=== PATIENT | female | born 1990 | race Hispanic/Latino ===

== ENCOUNTER 2018-01-03 15:36 | Inpatient (IN) | payer MEDICAID ==
--- NOTE | 2018-01-03 16:14 | C.PDOC ---
History Of Present Illness 27 y/o female with a history of benzo addiction presents to the ED for an intentional overdose via opiate. Patient attempted suicide this morning claiming to still have suicidal ideation. She is complaining of anxiety and claims to have last used yesterday. Denies other symptoms. PMD: none provided S/P INTENTIONAL OD THIS MORNING CO SUICIDAL IDEATION. +OPIATE OD. +BZ ABUSE. CURRENTLY CO ANXIETY, LAST USE YESTERDAY. DENIES OTHER SX EXAM MILD DIST PSYCH CALM COOPERATIVE NO ACUTE INTOX/WITHDRAWAL +SI REMAINDER NEG Time Seen by Provider: 01/03/18 16:00 Chief Complaint (Nursing): Psychiatric Evaluation History Per: Patient History/Exam Limitations: no limitations Onset/Duration Of Symptoms: Hrs Current Symptoms Are (Timing): Still Present Modifying Factor(s): Narcotics, Other (benzo drugs) Associated Symptoms: Anxiety, Suicidal Thoughts, Suicidal Plan Recent travel outside of the [place]: No Past Medical History Vital Signs: Last Vital Signs Temp 98.1 F 01/03/18 18:08 Pulse 82 01/03/18 18:08 Resp 18 01/03/18 18:08 BP 98/63 L 01/03/18 18:08 Pulse Ox 96 01/03/18 18:35 - Medical History PMH: Anxiety, Asthma, Bipolar Disorder, Depression, Post Traumatic Stress Disorder Surgical History: No Surg Hx Family History: States: No Known Family Hx - Social History Hx Tobacco Use: No Hx Alcohol Use: No Hx Substance Use: Yes - Immunization History Hx Tetanus Toxoid Vaccination: No Hx Influenza Vaccination: No Hx Pneumococcal Vaccination: No Review Of Systems Except As Marked, All Systems Reviewed And Found Negative. Constitutional: Positive for: Other (opiate overdose) Psych: Positive for: Anxiety, Suicidal ideation Physical Exam - Physical Exam Appears: No Acute Distress (no acute intoxication/withdrawal), In Acute Distress Skin: Normal Color, Warm, Dry Head: Atraumatic, Normacephalic Eye(s): bilateral: Normal Inspection, PERRL, EOMI Nose: Normal Throat: Normal Neck: Normal Cardiovascular: Rhythm Regular, No Murmur Respiratory: Normal Breath Sounds, No Decreased Breath Sounds Gastrointestinal/Abdominal: Normal Exam, Soft, No Tenderness Back: Normal Inspection, No CVA Tenderness, No Vertebral Tenderness Extremity: Normal ROM, No Pedal Edema, No Deformity Neurological/Psych: Oriented x3, Other (calm and cooperative +DEPRESSION, ACTIVE SI. NO ACUTE INTOX/WITHDRAWAL) ED Course And Treatment - Laboratory Results Result Diagrams: 01/03/18 16:17 01/03/18 16:17 ECG: Interpreted By Me ECG Rhythm: Sinus Rhythm Rate From EC O2 Sat by Pulse Oximetry: 96 (RA) Pulse Ox Interpretation: Normal - Radiology CXR: Interpreted by Me CXR Interpretation: Yes: No Acute Disease Reevaluation Time: 18:20 Reassessment Condition: Improved (MED CLEAR FOR PSYCH EVAL. CRISIS RENETTA NOTIFIED) Medical Decision Making Medical Decision Making: Scribe Attestation: Documented by Heidy Araya acting as a scribe Addie Carmichael MD. Scribe Attestation: All medical record entries made by the Scribe were at my direction and personally dictated by me. I have reviewed the chart and agree that the record accurately reflects my personal performance of the history, physical exam, medical decision making, and the department course for this patient. I have also personally directed, reviewed, and agree with the discharge instructions and disposition. Disposition Counseled Patient/Family Regarding: Studies Performed, Diagnosis - Disposition Disposition: HOSPITALIZED Disposition Time: 18:34 Condition: STABLE Forms: [facility] (Indian) - POA Present On Arrival: None - Clinical Impression Clinical Impression: PTSD (post-traumatic stress disorder), Opiate abuse, continuous Decision To Admit - Pt Status Changed To: Hospital Disposition Of: Inpatient - Admit Certification Admit to Inpatient:: After my assessment, the patient will require hospitalization for at least two midnights. This is because of the severity of symptoms shown, intensity of services needed, and/or the medical risk in this patient being treated as an outpatient. - InPatient: Physician Admission Certification: I certify that this patient requires 2 or more midnights of care for the following reason:: SEE NOTE - . Bed Request Type: Psychiatry Admitting Physician: Buzz Montes Patient Diagnosis: PTSD (post-traumatic stress disorder), Opiate abuse, continuous
[2018-01-03 16:25] LABS: BASO % 0.2 % (0.0-2.0); EOS # 0.1 K/uL (0.0-0.7); HEMOGLOBIN 13.6 g/dL (11.0-16.0); LYMPH # 1.2 K/uL (1.0-4.3); LYMPH % 10.1 % (20.0-40.0); MEAN CELL VOLUME 88.8 fL (81.0-99.0); MEAN CORPUSCULAR HEMOGLOBIN 30.8 pg (27.0-31.0); MEAN CORPUSCULAR HGB CONC 34.7 g/dL (33.0-37.0); MEAN PLATELET VOLUME 10.1 fL (7.2-11.7); MONO # 0.7 K/uL (0.0-0.8); MONO % 6.1 % (0.0-10.0); NEUT # 9.6 K/uL (1.8-7.0); NEUT % 82.6 % (50.0-75.0); NRBC % 0.1 % (0.0-2.0); RBC 4.41 Mil/uL (3.80-5.20); RED CELL DISTRIBUTION WIDTH 14.3 % (11.5-14.5); WHITE BLOOD COUNT 11.6 K/uL (4.8-10.8)
[2018-01-03 16:31] LABS: ACETAMINOPHEN < 10.0 ug/mL (10.0-30.0); SALICYLATE < 1.0 mg/dL 1
[2018-01-03 16:32] LABS: ALB/GLOB RATIO 1.1 (1.0-2.1); ALBUMIN 4.7 g/dL (3.5-5.0); CALCIUM 9.6 mg/dl (8.6-10.4); GFR AFRICAN-AMERICAN > 60; GFR NON-AFRICAN AMERICAN > 60
[2018-01-03 16:38] LABS: ALT/SGPT 22 U/L (9-52); AST/SGOT 29 U/L (14-36); BLOOD UREA NITROGEN 18 mg/dL (7-17)
--- NOTE | 2018-01-03 17:25 | RAD ---
PROCEDURE: CHEST RADIOGRAPH, 1 VIEW HISTORY: Overdosed COMPARISON: No prior study available comparison. FINDINGS: LUNGS: Clear. PLEURA: No pneumothorax or pleural fluid seen. CARDIOVASCULAR: Normal. OSSEOUS STRUCTURES: No significant abnormalities. VISUALIZED UPPER ABDOMEN: Normal. OTHER FINDINGS: In situ left nipple ring. IMPRESSION: No active disease.
[2018-01-03 17:50] LABS: SQUAMOUS EPITHIAL 4 /hpf (0-5); URINE BACTERIA OCC (<OCC); URINE BILIRUBIN NEGATIVE (NEGATIVE); URINE BLOOD NEGATIVE (NEGATIVE); URINE CALCIUM OXALATE CRYSTALS OCC /hpf (<OCC); URINE CLARITY Hazy (Clear); URINE COLOR Yellow (YELLOW); URINE GLUCOSE (UA) NORMAL (Normal); URINE HYALINE CAST >20 /lpf (0-2); URINE LEUKOCYTE ESTERASE TRACE Leu/uL (Negative); URINE PROTEIN 2+ mg/dL (NEGATIVE); URINE UROBILINOGEN NORMAL mg/dL (0.2-1.0)
[2018-01-03 17:57] LABS: BENZODIAZEPINES, UR NEGATIVE (NEGATIVE); PHENCYCLIDINE, UR NEGATIVE (NEGATIVE)
[2018-01-03 18:13] LABS: BARBITURATES, UR POSITIVE (NEGATIVE); OPIATES, UR POSITIVE (NEGATIVE)
--- NOTE | 2018-01-03 19:23 | PCM.BM ---
<Shaquille Augustine - Last Filed: 01/03/18 19:21> Treatment Plan Problems - Problems identified on initial assessmt Suicidal Ideation Date Initiated: 01/03/18 Time Initiated: 19:15 Assessment reference: NA Status: Monitor Opiates Abuse Date Initiated: 01/03/18 Time Initiated: 19:15 Assessment reference: NA Status: Active Treatment assets and liabiliti Patient Assests: good support system, negotiates basic needs Patient Liabilities: physical pain, substance abuse (Opiates, Barbituates), medical problems - Milieu Protocol Maintain good personal hygiene: daily Encourage regular showers, daily Remind patient to perform daily oral care, every shift Assist patient to perform ADL's Conduct patient checks and document Observation sheet: Q15 minutes Maintain personal safety: every shift Educate patient to report safety concerns to staff, every shift Monitor environment for contraband/sharps Medication safety: Monitor for expected outcome, potential side effects: every shift, Assess barriers to learning: every shift, Assess readiness for medication education: every shift <Deidra Warren - Last Filed: 01/05/18 11:29> - Diagnosis (1) Bipolar disorder Status: Acute Interventions: 01/05/18 11:29 * Assess/adjust medications daily and /or as needed * See patient on an individual basis 7x/week to assess level of manic behaviors and stability * Discuss risks, benefits, side effects and alternatives of medications * (2) Opiate abuse, continuous Status: Acute Interventions: \ * Assess 7x/week regarding severity of withdrawal * Educate regarding risks, benefits, side effects and alternatives of medications * Use Motivational Interviewing for abstinence * Use CBT for relapse prevention * Medication management for withdrawal symptoms * Encourage medication assisted treatment *
[2018-01-03] MEDS ORDERED: Albuterol HFA 90 mcg/actuation (8 g) INH PRN (19:57)
[2018-01-03] MEDS ORDERED: (Novolin R) Insulin Human Regular 100 units/ml vial SC SCH (20:03)
[2018-01-03] MEDS ORDERED: Aluminum Hydroxide/Magnesium Hydroxide Susp (30 mL) PO PRN (20:17)
[2018-01-03] MEDS: (Novolin R) Insulin Human Regular 100 units/ml vial SC SCH (21:01)
[2018-01-04] MEDS: (Novolin R) Insulin Human Regular 100 units/ml vial SC SCH ×4 (07:43→22:50)
[2018-01-04] MEDS: Multiple Vitamins Tab PO SCH (09:47)
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
--- NOTE | 2018-01-04 22:15 | CARD ---
APPROVED REPORT EKG Measurement Heart [id number] <Conclusion> Normal sinus rhythm Normal ECG
[2018-01-04] MEDS ORDERED: Albuterol HFA 90 mcg/actuation (8 g) IH SCH (23:45)
[2018-01-05 06:45] VITALS: TEMP 97.6
[2018-01-05] MEDS: (Novolin R) Insulin Human Regular 100 units/ml vial SC SCH ×4 (08:01→21:42)
[2018-01-05] MEDS: Multiple Vitamins Tab PO SCH (09:34)
--- NOTE | 2018-01-05 10:35 | PCM.PYCHPN ---
Psychiatric Progress Note - Psychiatric Progress Note Patient seen today, length of contact: 15 min Patient Chief Complaint: I am feeling much better.' Problems Identified/Issues Discussed: Patient seen and evaluated, chart reviewed and discussed with the nurse. Patient reports some improvement in her mood and reports improvement in the anxiety symptoms. Patient reports withdrawal symptoms including nausea, headaches, cramps and sweating. She denies any auditory or visual hallucinations. She still appears depressed, isolated and withdrawn. However, she remained calm and cooperative. Pt signed a 48 hrs notice. Pt will be screened by [facility]. Patient is compliant with medications and denies any side effects. Symptoms are improving but need more time to stabilize. Support and psychoeducation given. Medication Change: Yes (Methadone taper) Medical Record Reviewed: Yes Mental Status Examination - Cognitive Function Orientation: Person, Place, Situation, Time Memory: Intact Attention: WNL Concentration: Poor Association: WNL Fund of Knowledge: Poor - Mood Mood: Depressed, Anxious - Affect Affect: Constricted, Depressed - Speech Speech: Soft - Formal Thought Process Formal Thought Process: Flight of ideas - Suicidal Ideation Suicidal Ideation: No - Homicidal Ideation Homicidal Ideation: No Goal/Treatment Plan - Goal/Treatment Plan Need for Continued Stay: Severe depression anxiety, Severe functional impairment Progress Toward Problem(s) and Goals/Treatment Plan: Bipolar disorder mixed severe with psychotic features -CBT -Psychoeducation -Supportive therapy, group therapy, individual therapy -Minipress 2 mg PO QHS -Neurontin 300 mg by mouth 3 times a day -Remeron 30 mg PO QHS -Seroquel 200 mg by mouth daily at bedtime Opioid use disorder severe -CBT -Psychoeducation -Supportive therapy, individual therapy -Use FL for abstinence Opioid withdrawal -CBT -Psychoeducation -Supportive therapy, individual therapy -Clonidine when necessary -Start methadone taper -Start prn meds Sedative/Hypnotic use disorder severe -CBT -Psychoeducation -Supportive therapy, individual therapy -Use FL for abstinence Sedative/Hypnotic withdrawal -CBT -Psychoeducation -Supportive therapy, individual therapy -D/C Librium taper -Start Ativan taper -Ativan PRN Cannabis use disorder moderate -Monitor signs and symptoms -Use FL for abstinence DM Continue prescribed meds Asthma Continue prescribed meds - Smoking Cessation Smoking Cessation Initiated: No
[2018-01-05] MEDS ORDERED: Prazosin HCL 5 mg PO SCH (22:00)
[2018-01-05] MEDS ORDERED: QUEtiapine 150 mg XR Tab PO SCH (22:00)
[2018-01-06 06:27] VITALS: BP 113/74; PULSE 89; RESP 20; O2SAT 97
[2018-01-06] MEDS: (Novolin R) Insulin Human Regular 100 units/ml vial SC SCH (08:04)
--- NOTE | 2018-01-06 09:11 | PCM.PYCHDC ---
Mental Status Examination - Mental Status Examination Orientation: Person Discharge Summary - Discharge Note Laboratory Data: Abnormal Lab Results 01/05/18 01/05/18 01/05/18 11:02 16:21 21:04 POC Glucose (mg/dL) 181 H 79 228 H 01/06/18 07:45 POC Glucose (mg/dL) 162 H Consultations:: List each consultation separately and include: 1. Reason for request. 2. Findings. 3. Follow-up Summary of Hospital Course include:: 1. Description of specific treatment plan utilized for patients during their course of treatmen. 2. Summarize the time- course for resolution of acute symptoms and/or regressed behaviors. 3. Describe issues identified and worked on during hospitalization. 4. Describe medication utilized. 5. Describe medical problems identified and treated. 6. Reassessment of suicide risk - Final Diagnosis (DSM 5) Condition upon Discharge: STABLE Disposition: AGAINST MEDICAL ADVICE Prescriptions/Medication Reconciliation: Gabapentin [Neurontin] 300 mg PO BID #60 cap Mirtazapine [Remeron] 30 mg PO HS #30 tab Prazosin HCl [Minipress] 5 mg PO HS #30 capsule QUEtiapine [SEROquel] 200 mg PO HS #30 tab
[2018-01-06] MEDS: Multiple Vitamins Tab PO SCH (09:16)
== END 2018-01-06 10:10 | disposition left against medical advice (07) | DRG 430 ==
LOC: C.ER 15:36 → C.5E 18:35
PROC: GZ3ZZZZ Medication Management (ICD-10-PCS; principal; 2018-01-03)
PROC: GZHZZZZ Group Psychotherapy (ICD-10-PCS; 2018-01-03)
PROC: GZ56ZZZ Individual Psychotherapy, Supportive (ICD-10-PCS; 2018-01-03)
PROC: HZ2ZZZZ Detoxification Services for Substance Abuse Treatment (ICD-10-PCS; 2018-01-03)
PROC: HZ59ZZZ Individual Psychotherapy for Substance Abuse Treatment, Supportive (ICD-10-PCS; 2018-01-03)
PROC: HZ46ZZZ Group Counseling for Substance Abuse Treatment, Psychoeducation (ICD-10-PCS; 2018-01-03)
DX: F31.64 Bipolar disorder, current episode mixed, severe, with psychotic features (principal); F11.23 Opioid dependence with withdrawal; F13.239 Sedative, hypnotic or anxiolytic dependence with withdrawal, unspecified; F43.10 Post-traumatic stress disorder, unspecified; F12.20 Cannabis dependence, uncomplicated; G47.419 Narcolepsy without cataplexy; F17.210 Nicotine dependence, cigarettes, uncomplicated; E11.9 Type 2 diabetes mellitus without complications; J45.909 Unspecified asthma, uncomplicated; Z91.5 Personal history of self-harm

== ENCOUNTER 2018-09-19 23:55 | Emergency (ER) | payer MEDICAID, OTHER ==
[2018-09-20 00:11] VITALS: BP 135/86; PULSE 107; RESP 20; TEMP 98; O2SAT 100
--- NOTE | 2018-09-20 01:17 | C.PDOC ---
History Of Present Illness 27 y/o female presents for detox from heroin and other substances; pt sts she left a detox program today and still feels like she is detoxing after 4-5 days there and wants to continue. denies using drugs today. c/o diarrhea. pt made aware there are no female detox beds available. became verbally abusive to me and staff, cursing. pt walked out of ed, was not physically examined. Time Seen by Provider: 09/20/18 00:13 Chief Complaint (Nursing): Substance Abuse History Per: Patient History/Exam Limitations: no limitations Onset/Duration Of Symptoms: Hrs Associated Symptoms: Anger, Anxiety, Agitation Past Medical History Reviewed: Historical Data, Nursing Documentation, Vital Signs Vital Signs: Last Vital Signs Temp 98 F 09/20/18 00:06 Pulse 107 H 09/20/18 00:06 Resp 20 09/20/18 00:06 BP 135/86 09/20/18 00:06 Pulse Ox 100 09/20/18 00:06 - Medical History PMH: Anxiety, Asthma, Bipolar Disorder, Depression, Diabetes, Post Traumatic Stress Disorder, Seizures Denies: Hepatitis, HIV, HTN, Sexually Transmitted Disease Surgical History: No Surg Hx - [facility] DETOXIFICATION SERVICES FOR SUBSTANCE ABUSE TREATMENT (01/03/18) GROUP SHELTER SUPERVISOR FOR SUBSTANCE ABUSE TREATMENT, PSYCHOEDUCATION (01/03/18) GROUP PSYCHOTHERAPY (01/03/18) INDIV PSYCHOTHERAPY FOR SUBSTANCE ABUSE TREATMENT, SUPPORT (01/03/18) INDIVIDUAL PSYCHOTHERAPY, SUPPORTIVE (01/03/18) MEDICATION MANAGEMENT (01/03/18) Family History: States: Unknown Family Hx - Social History Hx Tobacco Use: No Hx Alcohol Use: No Hx Substance Use: Yes - Immunization History Hx Tetanus Toxoid Vaccination: No Hx Influenza Vaccination: No Hx Pneumococcal Vaccination: No Review Of Systems Review Of Systems: ROS cannot be obtained secondary to pt's inabilty to answer questions. (pt not cooperative) Psych: Positive for: Other (detox ) Physical Exam - Physical Exam Appears: Non-toxic, Unkempt, Agitated Skin: Warm Head: Atraumatic, Normacephalic ED Course And Treatment O2 Sat by Pulse Oximetry: 100 Medical Decision Making Medical Decision Making: Progress: Patient informed that there are no detox bed available at this time. Patient became angry, verbally abusive and eloped from the ED prior to physical examination. Disposition - Disposition Disposition: ELOPEMENT - ER ONLY Disposition Time: 12:15 Condition: FAIR Forms: [facility] (Malaysian) - Clinical Impression Clinical Impression: Drug dependence
== END 2018-09-20 00:13 | disposition left against medical advice (07) ==
LOC: C.ER 23:55
DX: F19.20 Other psychoactive substance dependence, uncomplicated (principal)

== ENCOUNTER 2018-10-01 23:28 | Inpatient (IN) | payer MEDICAID, OTHER ==
--- NOTE | 2018-10-02 00:32 | C.PDOC ---
History Of Present Illness Patient presents to the ER stating she has had suicidal ideation for the past 3 days. Patient states she wants to OD but is also requesting detox from ETOH and heroin. Denies any physical complaints at this time. Time Seen by Provider: 10/02/18 00:31 Chief Complaint (Nursing): Psychiatric Evaluation History Per: Patient History/Exam Limitations: no limitations Onset/Duration Of Symptoms: Days Current Symptoms Are (Timing): Still Present Suicide/Self Injury Attempted (Context): None Modifying Factor(s): None Severity: None Pain Scale Rating Of: 0 Associated Symptoms: Suicidal Thoughts, Suicidal Plan Involuntary Hold By: None Recent travel outside of the [place]: No Past Medical History Reviewed: Historical Data, Nursing Documentation, Vital Signs Vital Signs: Last Vital Signs Temp 98 F 10/02/18 00:04 Pulse 96 H 10/02/18 00:04 Resp 20 10/02/18 00:04 BP 128/72 10/02/18 00:04 Pulse Ox 97 10/02/18 00:04 - Medical History PMH: Anxiety, Asthma, Bipolar Disorder, Depression, Diabetes, Post Traumatic Stress Disorder, Seizures Denies: Hepatitis, HIV, HTN, Sexually Transmitted Disease - [facility] Procedures DETOXIFICATION SERVICES FOR SUBSTANCE ABUSE TREATMENT (01/03/18) GROUP JEWELRY FINISHER FOR SUBSTANCE ABUSE TREATMENT, PSYCHOEDUCATION (01/03/18) GROUP PSYCHOTHERAPY (01/03/18) INDIV PSYCHOTHERAPY FOR SUBSTANCE ABUSE TREATMENT, SUPPORT (01/03/18) INDIVIDUAL PSYCHOTHERAPY, SUPPORTIVE (01/03/18) MEDICATION MANAGEMENT (01/03/18) Family History: States: No Known Family Hx - Social History Hx Tobacco Use: No Hx Alcohol Use: No Hx Substance Use: Yes - Immunization History Hx Tetanus Toxoid Vaccination: No Hx Influenza Vaccination: No Hx Pneumococcal Vaccination: No Review Of Systems Constitutional: Negative for: Fever, Chills Cardiovascular: Negative for: Chest Pain, Palpitations Respiratory: Negative for: Cough, Shortness of Breath Gastrointestinal: Negative for: Nausea, Vomiting Neurological: Negative for: Weakness, Numbness Psych: Positive for: Suicidal ideation Physical Exam - Physical Exam Appears: Non-toxic Skin: Warm, Dry Head: Normacephalic Oral Mucosa: Moist Chest: Symmetrical, No Tenderness Cardiovascular: Rhythm Regular Respiratory: No Rales, No Rhonchi, No Wheezing Gastrointestinal/Abdominal: Soft, No Tenderness Neurological/Psych: Oriented x3 ED Course And Treatment - Laboratory Results Result Diagrams: 10/02/18 01:01 10/02/18 01:01 O2 Sat by Pulse Oximetry: 97 (Room air) Pulse Ox Interpretation: Normal Progress Note: Blood work and urinalysis ordered. Crisis notified. Disposition Discussed With : Santi Crow Comment: accepted the pt on his service and took over the care at 3:45 AM Doctor Will See Patient In The: Hospital Counseled Patient/Family Regarding: Studies Performed, Diagnosis - Disposition Disposition: HOSPITALIZED Disposition Time: 00:32 Condition: FAIR Forms: [facility] (Croatian) - POA Present On Arrival: Poor Glycemic Control - Clinical Impression Clinical Impression: Major depression, recurrent, Alcohol abuse, Opiate abuse, continuous - Scribe Statement The provider has reviewed the documentation as recorded by the Scribdustin Campuzano All medical record entries made by the Scribe were at my direction and pers onally dictated by me. I have reviewed the chart and agree that the record accurately reflects my personal performance of the history, physical exam, medical decision making, and the department course for this patient. I have also personally directed, reviewed, and agree with the discharge instructions and disposition. Decision To Admit - Pt Status Changed To: Hospital Disposition Of: Inpatient - Admit Certification Admit to Inpatient:: After my assessment, the patient will require hospitalization for at least two midnights. This is because of the severity of symptoms shown, intensity of services needed, and/or the medical risk in this patient being treated as an outpatient. - InPatient: Physician Admission Certification: I certify that this patient requires 2 or more midnights of care for the following reason:: After my assessment, the patient will require hospitalization for at least two midnights. This is because of the severity of symptoms shown, intensity of services needed, and/or the medical risk in this patient being treated as an outpatient. - . Bed Request Type: Psychiatry Admitting Physician: Santi Crow Patient Diagnosis: Major depression, recurrent, Alcohol abuse, Opiate abuse, continuous
[2018-10-02 01:06] LABS: BASO % 0.4 % (0.0-2.0); EOS # 0.2 K/uL (0.0-0.7); EOS % 2.5 % (0.0-4.0); HEMOGLOBIN 12.4 g/dL (11.0-16.0); LYMPH # 1.8 K/uL (1.0-4.3); LYMPH % 29.4 % (20.0-40.0); MEAN CELL VOLUME 91.8 fL (81.0-99.0); MEAN CORPUSCULAR HEMOGLOBIN 30.2 pg (27.0-31.0); MEAN CORPUSCULAR HGB CONC 32.9 g/dL (33.0-37.0); MEAN PLATELET VOLUME 10.3 fL (7.2-11.7); MONO # 0.4 K/uL (0.0-0.8); MONO % 6.7 % (0.0-10.0); NEUT # 3.6 K/uL (1.8-7.0); RBC 4.1 Mil/uL (3.80-5.20); RED CELL DISTRIBUTION WIDTH 14.2 % (11.5-14.5)
[2018-10-02 01:27] LABS: ALB/GLOB RATIO 1.6 (1.0-2.1); ALBUMIN 4.2 g/dL (3.5-5.0); ALT/SGPT 15 U/L (9-52); AST/SGOT 26 U/L (14-36); BLOOD UREA NITROGEN 16 mg/dL (7-17); CALCIUM 8.6 mg/dl (8.6-10.4); GFR NON-AFRICAN AMERICAN > 60
[2018-10-02 03:26] LABS: HCG,QUALITATIVE URINE NEGATIVE (NEGATIVE); SQUAMOUS EPITHIAL 13 /hpf (0-5); URINE BACTERIA RARE (<OCC); URINE BILIRUBIN NEGATIVE (NEGATIVE); URINE BLOOD NEGATIVE (NEGATIVE); URINE CLARITY Hazy (Clear); URINE COLOR Yellow (YELLOW); URINE GLUCOSE (UA) 2+ mg/dL (Normal); URINE LEUKOCYTE ESTERASE NEG Leu/uL (Negative); URINE PROTEIN NEGATIVE (NEGATIVE); URINE UROBILINOGEN NORMAL mg/dL (0.2-1.0)
[2018-10-02 03:32] LABS: BENZODIAZEPINES, UR NEGATIVE (NEGATIVE); PHENCYCLIDINE, UR NEGATIVE (NEGATIVE)
[2018-10-02 03:40] LABS: BARBITURATES, UR POSITIVE (NEGATIVE)
[2018-10-02 04:00] LABS: OPIATES, UR POSITIVE (NEGATIVE)
--- NOTE | 2018-10-02 05:18 | PCM.BM ---
<Fox Saez - Last Filed: 10/02/18 05:15> Treatment Plan Problems - Problems identified on initial assessmt Suicidal Ideation Date Initiated: 10/02/18 Time Initiated: 04:55 Assessment reference: NA Status: Monitor Defensive Coping Date Initiated: 10/02/18 Time Initiated: 04:55 Assessment reference: NA Status: Active Knowledge Deficit: Alcohol Use Date Initiated: 10/02/18 Time Initiated: 04:55 Assessment reference: NA Status: Active Treatment assets and liabiliti Patient Assests: cooperative, ADL independent, negotiates basic needs Patient Liabilities: live alone, financial problems, poor support system, substance abuse (Hx of Heroin and Alcohol abuse) - Milieu Protocol Maintain good personal hygiene: daily Encourage regular showers, daily Remind patient to perform daily oral care, every shift Assist patient to perform ADL's Conduct patient checks and document Observation sheet: Q15 minutes Maintain personal safety: every shift Educate patient to report safety concerns to staff, every shift Monitor environment for contraband/sharps Medication safety: Monitor for expected outcome, potential side effects: every shift, Assess barriers to learning: every shift, Assess readiness for medication education: every shift <Kelvin,Deidra - Last Filed: 10/03/18 23:24> - Diagnosis (1) Bipolar disorder Status: Acute Interventions: 10/03/18 23:24 * Assess/adjust medications daily and /or as needed * See patient on an individual basis 7x/week to assess level of manic behaviors and stability * Discuss risks, benefits, side effects and alternatives of medications * (2) Opiate abuse, continuous Status: Acute Interventions: 10/03/18 23:24 * Assess 7x/week regarding severity of withdrawal * Educate regarding risks, benefits, side effects and alternatives of medications * Use Motivational Interviewing for abstinence * Use CBT for relapse prevention * Medication management for withdrawal symptoms * Encourage medication assisted treatment *
[2018-10-02] MEDS ORDERED: Aluminum Hydroxide/Magnesium Hydroxide Susp (30 mL) PO PRN (08:52)
--- NOTE | 2018-10-02 09:48 | PCM.PSYCH ---
Initial Psychiatric Evaluation - Initial Psychiatric Evaluation Type of Admission: Voluntary Legal Status: Capacity Chief Complaint (in patient's own words): I was feeling depressed and suicidal.' History of Present Illness and Precipitating Events: Patient is a 27 year old female that presented to the [facility] ED on 10/02 and was admitted to the [facility] psychiatric unit for suicidal ideation and detox, with urine drug screen testing positive for opiates and barbituates. Patient denies previous psychiatric history and psychiatric hospitalizations she also denies any history of follow-up with any psychiatrist. On examination, alivia warner was unkempt and very agitated, actively resisting questioning. She explained that she was tired of living on the streets and being addicted to heroin and that she wanted to get help getting clean. Patient uses 10 to 20 bags of heroin daily, often injecting it into her fingers so as to leave any iyer. Additionally, she admits to drinking a fifth of vodka daily, with her last drink being on 10/01. Patient has previously experienced seizures due to alcohol withdrawal, which occurred approximately 6 months ago. Patient is diabetic and currently takes Lantus 10mg QD and Humulin R 2mg with every meal. Patient is homeless and is currently unemployed. She reports depressed mood, at times feelings of hopelessness and helplessness, poor sleep and poor appetite. She reports at times irritability, agitation and racing thoughts. However she denies any auditory or visual hallucinations. She denies any other substance abuse. Past medical history DM Current Medications: Active Medications Generic Name Dose Route Start Last Admin Trade Name Freq PRN Reason Stop Dose Admin Al Hydrox/Mg Hydrox/Simethicone 30 ml 10/02/18 08:52 Maalox 30 Ml PO TID PRN Indigestion / Heartburn Chlordiazepoxide 25 mg 10/02/18 10:00 Librium PO 10/06/18 09:59 Q6 [facility] Taper Chlordiazepoxide 25 mg 10/02/18 08:54 Librium PO 10/06/18 08:55 Q4H PRN Alcohol Withdrawal Clonidine HCl 0.1 mg 10/02/18 08:52 Catapres PO Q4 PRN COWS Score More or Equal to 5 Folic Acid 1 mg 10/02/18 10:00 Folic Acid PO DAILY [facility] Hydroxyzine HCl 25 mg 10/02/18 08:52 Atarax PO Q4H PRN Anxiety Influenza Virus Vaccine 60 mcg 02/07/19 10:00 Flucelvax Quad [id number] Syr IM 10/04/18 10:01 .ONCE ONE Insulin Aspart 0 unit 10/02/18 11:30 Novolog SC ACHS [facility] Protocol Loperamide HCl 2 mg 10/02/18 08:52 Imodium PO Q8 PRN Diarrhea Mirtazapine 15 mg 10/02/18 22:00 Remeron PO HS [facility] Multivitamins 1 tab 10/02/18 10:00 Hexavitamin PO DAILY [facility] Ondansetron HCl 4 mg 10/02/18 08:52 Zofran Tab PO Q8 PRN Nausea/Vomiting Pneumococcal Polyvalent Vaccine 0.5 ml 10/04/18 10:30 Pneumovax 23 Vaccine IM 10/04/18 10:31 .ONCE ONE Thiamine HCl 100 mg 10/02/18 10:00 Vitamin B1 Tab PO DAILY [facility] Trazodone HCl 50 mg 10/02/18 08:52 Desyrel PO HS PRN Insomnia Past Psychiatric History - Past Psychiatric History Previous Treatment History: Inpatient Pertinent Medical Hx (Current Medical&Sleep Prob, Allergies): Allergies Allergy/AdvReac Type Severity Reaction Status Date / Time metoclopramide [From Reglan] Allergy Intermediate RASH Verified 10/02/18 01:55 ampothericin Allergy Severe ANAPHYLAXIS Uncoded 10/02/18 01:55 Albuterol HFA [Ventolin HFA 90 mcg/actuation (8 g)] 2 puff IH [id number] 01/03/18 Gabapentin 600 mg PO QID 01/03/18 Insulin Human Regular [HumuLIN R] 100 units SC STAT 01/03/18 Mirtazapine [Remeron] 30 mg PO HS 01/03/18 QUEtiapine [SEROquel] 300 mg PO HS 01/03/18 Gabapentin [Neurontin] 300 mg PO BID #60 cap 01/06/18 Mirtazapine [Remeron] 30 mg PO HS #30 tab 01/06/18 Prazosin HCl [Minipress] 5 mg PO HS #30 capsule 01/06/18 QUEtiapine [SEROquel] 200 mg PO HS #30 tab 01/06/18 Review of Systems - Review of Systems All systems: reviewed and no additional remarkable complaints except - Psychiatric Psychiatric: Anxiety, Irritability, Mood Swings, Suicidal Ideation Mental Status Examination - Personal Presentation Personal Presentation: Looks stated age - Affect Affect: Constricted, Depressed - Motor Activity Motor Activity: Calm - Reliability in Providing Information Reliability in Providing Information: Good - Speech Speech: Organized - Mood Mood: Anxious - Formal Thought Process Formal Thought Process: No Impairment - Obsessions/Compulsions Obsessions: No Compulsions: No - Cognitive Functions Orientation: Person, Place, Situation, Time Sensorium: Alert Attention/Concentration: Attentive Abstract Thinking: [place] Estimate of Intelligence: Below average Judgement: Imparied, as evidence by: Poor judgement, Imparied, as evidence by: Lack of insight into illness - Risk Risk: Suicidal, Withdrawal, Diminished functioning - Limitations Limitations: Living alone DSM 5 DX - DSM 5 DSM 5 Diagnosis: Bipolar disorder mixed moderate Opioid use disorder severe Opioid withdrawal Alcohol use disorder severe Alcohol withdrawal - Recommended/Plan of Treatment Treatment Recommendations and Plan of Treatment: Bipolar disorder mixed moderate Opioid use disorder severe Opioid withdrawal Alcohol use disorder severe Alcohol withdrawal CBT Psychoeducation Supportive therapy and group therapy immunotherapy Methadone for opioid withdrawal Librium for alcohol withdrawal Neurontin for augmentation Remeron for depression Trazodone for sleep Hydroxyzine for anxiety Withdrawal medications for heroin including clonidine/Zofran/Imodium ec For alcohol folic acid/multivitamin/thiamine
[2018-10-02 10:05] VITALS: RESP 20
[2018-10-02] MEDS: Multiple Vitamins Tab PO SCH (10:16)
[2018-10-02] MEDS: (Novolog) Insulin Aspart, Recombinant 100 u/ml 10 ml vial SC SCH ×3 (12:23→21:15)
[2018-10-02] MEDS ORDERED: Albuterol HFA 90 mcg/actuation (8 g) INH PRN (23:10)
[2018-10-03] MEDS: Promethazine DM 6.25 mg-15 mg/5 ml Syrup PO PRN ×2 (01:02→17:26)
--- NOTE | 2018-10-03 02:45 | PCM.RRT ---
<Leo Brito - Last Filed: 10/03/18 06:43> FINANCIAL DATA ANALYST Nurses Assessment - Situation Date: 10/03/18 Time FINANCIAL DATA ANALYST was called: 02:44 FINANCIAL DATA ANALYST Responder Arrival Time:: 02:45 FINANCIAL DATA ANALYST Location:: [address] [place] [address] Room Number: 527B FINANCIAL DATA ANALYST Reason for Call: Looks Sicker (uncontrolled vomiting, bilious) FINANCIAL DATA ANALYST Called By: RN - IV IV Inserted during FINANCIAL DATA ANALYST?: No IV Fluids Initiated During FINANCIAL DATA ANALYST?: LR x1 L bolus ordered but line unable to be placed - Medication Medications Administered During FINANCIAL DATA ANALYST: Ativan 2 mg IM - Stat Labs Ordered FINANCIAL DATA ANALYST Stat Labs Ordered: CBC (hemoconcentrated, due to dehydration from vomiting), BMP (CMP shows BUn of 20, otherwise unremarkable) FINANCIAL DATA ANALYST Other Labs Ordered: Lipase was normal CPR started during FINANCIAL DATA ANALYST?: No - Vital Signs Vital Signs: T 98.2 F, HR 94, RR 20, Bp 142/90,SpO2 is 99% on RA - Time FINANCIAL DATA ANALYST Ended Time FINANCIAL DATA ANALYST Ended: 02:55 - Vital Signs at end of FINANCIAL DATA ANALYST Vital Signs at end of FINANCIAL DATA ANALYST: T 98.2 F, HR 94, RR 20, BP 142/90, 99% on RA - Recommendations 5) FINANCIAL DATA ANALYST Level of Care Recommendations: Remain in current setting (watch for 2 hours, pt additionally treated with Protonix 40 mg PO, Zofran 4 mg IM) Notifications: Attending Physician, Consultations <Roosevelt Marroquin - Last Filed: 10/03/18 08:02> FINANCIAL DATA ANALYST Nurses Assessment - Vital Signs Vital Signs: Rapid Response Vital Sign Blood Pressure 147/89 Pulse Rate 92 Respiratory Rate 20 Temperature 98.5 F Oxygen Saturation 100 - Vital Signs at end of FINANCIAL DATA ANALYST Vital Signs at end of FINANCIAL DATA ANALYST: Rapid Response End Vital Sign Blood Pressure 142/90 Pulse Rate 94 Respiratory Rate 20 Temperature 98.2 F O2 Sat by Pulse Oximetry 99 Attending/Attestation - Attestation I have personally seen and examined this patient.: Yes I have fully participated in the care of the patient.: Yes I have reviewed all pertinent clinical information, including history, physical exam and plan: Yes Notes (Text): 10/03/18 07:57 Patient admitted to [facility] with alcohol and opiod withdrawal, has been vomiting, has similar presentation with prior withdrawals, she was not toxic, awake, c/o some abd pain, but soft, bs normal, patient had earlier received methadone. Clinically slightly dry, hemoconcentration on the labs, would esclate the meds ie im ativan, im zofran, additional phenargan, encourge po fluids, if symptoms don't improve will need iv meds, hydration and transfer to medical floor.
[2018-10-03] MEDS ORDERED: Lactated Ringer's 1,000 ML IV ONE ×2 (03:04→23:47)
[2018-10-03 04:08] LABS: BASO # 0.1 K/uL (0.0-0.2); BASO % 0.5 % (0.0-2.0); EOS % 0.3 % (0.0-4.0); LYMPH # 1.6 K/uL (1.0-4.3); LYMPH % 15.7 % (20.0-40.0); MEAN CELL VOLUME 91.2 fL (81.0-99.0); MEAN CORPUSCULAR HEMOGLOBIN 32.7 pg (27.0-31.0); MEAN CORPUSCULAR HGB CONC 35.9 g/dL (33.0-37.0); MEAN PLATELET VOLUME 11.2 fL (7.2-11.7); MONO # 0.4 K/uL (0.0-0.8); MONO % 3.5 % (0.0-10.0); NEUT # 8.2 K/uL (1.8-7.0); RBC 4.66 Mil/uL (3.80-5.20); RED CELL DISTRIBUTION WIDTH 14.3 % (11.5-14.5)
[2018-10-03 04:13] LABS: ALB/GLOB RATIO 1.5 (1.0-2.1); ALBUMIN 4.7 g/dL (3.5-5.0); ALT/SGPT 23 U/L (9-52); AST/SGOT 35 U/L (14-36); BLOOD UREA NITROGEN 22 mg/dL (7-17); CALCIUM 9.6 mg/dl (8.6-10.4); GFR NON-AFRICAN AMERICAN > 60; LIPASE 110 U/L (23-300)
[2018-10-03 04:16] LABS: HEMOGLOBIN 15.3 g/dL (11.0-16.0)
[2018-10-03 04:17] LABS: WHITE BLOOD COUNT 10.3 K/uL (4.8-10.8)
[2018-10-03] MEDS ORDERED: Promethazine 12.5 mg/10 ml Syrup PO ONE (05:02)
[2018-10-03] MEDS ORDERED: Pantoprazole 40 mg EC Tab PO STA (05:02)
[2018-10-03] MEDS: (Novolog) Insulin Aspart, Recombinant 100 u/ml 10 ml vial SC SCH ×4 (08:44→21:31)
[2018-10-03] MEDS: Multiple Vitamins Tab PO SCH (09:52)
--- NOTE | 2018-10-03 11:02 | CP.PCM.CON ---
History of Present Illness - History of Present Illness History of Present Illness: 27F pmhx of DM and heroin abuse admitted to detox presents with a 2 days hx of vomiting abdominal pain and food intolerance. Pt reports taking heroin for years, and is now withdrawing soon after since her last time of using 2 days ago. Patient uses 10 to 20 bags of heroin daily, often injecting it into her fingers so as to leave any iyer. Additionally, she admits to drinking a fifth of vodka daily, with her last drink being on 2/0 Pt said these symptoms have happened before but not this bad. Pt is unable to tolerate any fluids or medications by mouth, not even her methadone. Pt is lethargic and is unable to provide more information. As per nursing, pt has been like this all night, rapid was called, IM Zofran 4mg q6 was begun, Pt has little improvement. ROS: 12 point ROS unable to obtain PMHx: DM, Opiate dependence PSx: denies FH: denies Allergies: reglan SocHx: uses heroin regularly Review of Systems - Review of Systems Systems not reviewed;Unavailable: Uncooperative - Gastrointestinal Gastrointestinal: Constipation, Cramping, Nausea, Vomiting Past Patient History - Past Social History Smoking Status: Heavy Smoker > 10 Cigarettes Daily - CARDIAC Hx Cardiac Disorders: No Hx Hypertension: No - PULMONARY Hx Asthma: Yes Hx Tuberculosis: No - NEUROLOGICAL HX Cerebrovascular Accident: No Hx Seizures: Yes (ETOH related) - HEENT Hx HEENT Problems: No - RENAL Hx Chronic Kidney Disease: No - ENDOCRINE/METABOLIC Hx Endocrine Disorders: Yes Hx Diabetes Mellitus Type 1: Yes - HEMATOLOGICAL/ONCOLOGICAL Hx Blood Disorders: No Hx Cancer: No Hx Human Immunodeficiency Virus (HIV): No - INTEGUMENTARY Hx Dermatological Problems: No - MUSCULOSKELETAL/RHEUMATOLOGICAL Hx Musculoskeletal Disorders: No - GASTROINTESTINAL Hx Bowel Surgery: No - GENITOURINARY/GYNECOLOGICAL Hx Genitourinary Disorders: No Hx Sexually Transmitted Disorders: No - PSYCHIATRIC Hx Substance Use: Yes - SURGICAL HISTORY Hx Orthopedic Surgery: Yes (Left knee) Other/Comment: Laminectomy - ANESTHESIA Hx Anesthesia: Yes Hx Anesthesia Reactions: No Meds Allergies/Adverse Reactions: Allergies Allergy/AdvReac Type Severity Reaction Status Date / Time metoclopramide [From Reglan] Allergy Intermediate RASH Verified 10/02/18 01:55 ampothericin Allergy Severe ANAPHYLAXIS Uncoded 10/02/18 01:55 - Medications Medications: Current Medications Al Hydrox/Mg Hydrox/Simethicone (Maalox 30 Ml) 30 ml PO TID PRN PRN Reason: Indigestion / Heartburn Albuterol (Ventolin Hfa 90 Mcg/Actuation (8 G)) 2 puff INH RQ4 PRN PRN Reason: Shortness of Breath Chlordiazepoxide (Librium) 25 mg PO Q8H [facility]; Taper Stop: 10/06/18 09:59 Last Admin: 10/03/18 10:38 Dose: Not Given Chlordiazepoxide (Librium) 25 mg PO Q4H PRN PRN Reason: Alcohol Withdrawal Stop: 10/06/18 08:55 Clonidine HCl (Catapres) 0.1 mg PO Q4 PRN PRN Reason: COWS Score More or Equal to 5 Folic Acid (Folic Acid) 1 mg PO DAILY [facility] Last Admin: 10/03/18 09:52 Dose: Not Given Gabapentin (Neurontin) 300 mg PO TID [facility] Last Admin: 10/03/18 09:51 Dose: Not Given Hydroxyzine HCl (Atarax) 25 mg PO Q4H PRN PRN Reason: Anxiety Last Admin: 10/02/18 19:40 Dose: 25 mg Influenza Virus Vaccine (Flucelvax Quad [id number] Syr) 60 mcg IM .ONCE ONE Stop: 10/04/18 10:01 Insulin Aspart (Novolog) 0 unit SC [facility]; Protocol Last Admin: 10/03/18 08:44 Dose: Not Given Loperamide HCl (Imodium) 2 mg PO Q8 PRN PRN Reason: Diarrhea Methadone HCl (Methadone) 20 mg PO Q24H [facility]; Taper Stop: 10/07/18 08:44 Last Admin: 10/03/18 08:38 Dose: 20 mg Mirtazapine (Remeron) 15 mg PO HS [facility] Last Admin: 10/02/18 21:24 Dose: 15 mg Multivitamins (Hexavitamin) 1 tab PO DAILY [facility] Last Admin: 10/03/18 09:52 Dose: Not Given Nicotine (Nicoderm Cq) 1 patch TD DAILY [facility] Last Admin: 10/03/18 10:55 Dose: Not Given Ondansetron HCl (Zofran Tab) 4 mg PO Q8 PRN PRN Reason: Nausea/Vomiting Ondansetron HCl (Zofran Inj) 4 mg IM Q6 PRN PRN Reason: Nausea/Vomiting Last Admin: 10/03/18 09:50 Dose: 4 mg Pneumococcal Polyvalent Vaccine (Pneumovax 23 Vaccine) 0.5 ml IM .ONCE ONE Stop: 10/04/18 10:31 Promethazine HCl/Dextromethorphan (Phenergan Dm Syrup) 5 ml PO Q6H PRN PRN Reason: Nausea/Vomiting Last Admin: 10/03/18 01:02 Dose: 5 ml Pseudoephedrine HCl (Sudafed Tab) 60 mg PO QID PRN PRN Reason: Nasal/Sinus Congestion Thiamine HCl (Vitamin B1 Tab) 100 mg PO DAILY [facility] Last Admin: 10/03/18 09:51 Dose: Not Given Trazodone HCl (Desyrel) 50 mg PO HS PRN PRN Reason: Insomnia Last Admin: 10/02/18 21:24 Dose: 50 mg Physical Exam - Constitutional Appears: Unkempt - Head Exam Head Exam: ATRAUMATIC, NORMAL INSPECTION - Eye Exam Eye Exam: EOMI, Normal appearance - ENT Exam ENT Exam: Mucous Membranes Moist - Respiratory Exam Respiratory Exam: Clear to Auscultation Bilateral. absent: Wheezes - Cardiovascular Exam Cardiovascular Exam: RRR, +S1, +S2 - GI/Abdominal Exam GI & Abdominal Exam: absent: Distended, Firm - Extremities Exam Extremities exam: Positive for: normal capillary refill, pedal pulses present - Neurological Exam Neurological exam: Alert, CN II-XII Intact, Oriented x3 - Psychiatric Exam Psychiatric exam: Depressed - Skin Skin Exam: Diaphoretic, Intact, Normal Color, Warm Results - Vital Signs Recent Vital Signs: Last Vital Signs Temp 98.8 F 10/03/18 06:00 Pulse 92 H 10/03/18 06:00 Resp 20 10/03/18 06:00 BP 145/97 H 10/03/18 06:00 Pulse Ox 98 10/03/18 06:00 - Labs Result Diagrams: 10/03/18 03:50 10/03/18 03:50 Labs: Laboratory Results - last 24 hr 10/02/18 10/02/18 10/02/18 11:52 16:31 20:05 WBC RBC Hgb Hct MCV MCH MCHC RDW Plt Count MPV Neut % (Auto) Lymph % (Auto) Cavalier % (Auto) Eos % (Auto) Baso % (Auto) Neut # (Auto) Lymph # (Auto) Cavalier # (Auto) Eos # (Auto) Baso # (Auto) Sodium Potassium Chloride Carbon Dioxide Anion Gap BUN Creatinine Est GFR ( Amer) Est GFR (Non-Af Amer) POC Glucose (mg/dL) 216 H 162 H 123 H Random Glucose Calcium Phosphorus Magnesium Total Bilirubin AST ALT Alkaline Phosphatase Total Protein Albumin Globulin Albumin/Globulin Ratio Lipase 10/03/18 10/03/18 10/03/18 02:49 03:50 03:50 WBC 10.3 D RBC 4.66 Hgb 15.3 D Hct 42.5 MCV 91.2 MCH 32.7 H MCHC 35.9 RDW 14.3 Plt Count 298 MPV 11.2 Neut % (Auto) 80.0 H Lymph % (Auto) 15.7 L Cavalier % (Auto) 3.5 Eos % (Auto) 0.3 Baso % (Auto) 0.5 Neut # (Auto) 8.2 H Lymph # (Auto) 1.6 Cavalier # (Auto) 0.4 Eos # (Auto) 0.0 Baso # (Auto) 0.1 Sodium 137 Potassium 4.2 Chloride 99 Carbon Dioxide 26 Anion Gap 16 BUN 22 H Creatinine 0.7 Est GFR ( Amer) > 60 Est GFR (Non-Af Amer) > 60 POC Glucose (mg/dL) 193 H Random Glucose 218 H Calcium 9.6 Phosphorus 3.0 Magnesium 2.2 Total Bilirubin 0.3 AST 35 ALT 23 Alkaline Phosphatase 113 Total Protein 8.0 Albumin 4.7 Globulin 3.2 Albumin/Globulin Ratio 1.5 Lipase 110 10/03/18 07:34 WBC RBC Hgb Hct MCV MCH MCHC RDW Plt Count MPV Neut % (Auto) Lymph % (Auto) Cavalier % (Auto) Eos % (Auto) Baso % (Auto) Neut # (Auto) Lymph # (Auto) Cavalier # (Auto) Eos # (Auto) Baso # (Auto) Sodium Potassium Chloride Carbon Dioxide Anion Gap BUN Creatinine Est GFR ( Amer) Est GFR (Non-Af Amer) POC Glucose (mg/dL) 236 H Random Glucose Calcium Phosphorus Magnesium Total Bilirubin AST ALT Alkaline Phosphatase Total Protein Albumin Globulin Albumin/Globulin Ratio Lipase Assessment & Plan - Assessment and Plan (Free Text) Assessment: 27F pmhx of DM admitted to Detox for Opiate withdrawals Plan: Vomiting -likely 2/2 to opiate withdrawals -no hypotension -no tachycardia -no electrolyte abnormalities -Zofran 4mg IM q4 -Phenergan 5 oral Marium'n Q6 -encourage slow oral fluids Acute Opiate Withdrawals -Methadone Taper -Ativan 2mg IM given stat -follow psych recs Hx of Alcohol dependence -monitor vitals -monitor for withdrawls -CIWA protocol -May given Ativan 2mg IM DM -Novolog Medium scale -Accucheks PPx: -PTX -no DVT ppx -Diabetic Diet
--- NOTE | 2018-10-03 23:37 | PCM.PYCHPN ---
Psychiatric Progress Note - Psychiatric Progress Note Patient seen today, length of contact: 15 min Patient Chief Complaint: I m not feeling well.' Problems Identified/Issues Discussed: Patient was seen and evaluated, chart reviewed and discussed the staff. Per staff, patient continued to vomit whole night last night and she is experiencing terrible withdrawal symptoms including cramps, nausea, vomiting, anxiety, headaches and sweating. She reports irritable and agitated mood and reports hopelessness and helplessness. She denies any auditory hallucinations or any paranoia She is taking medication denies any side effects. She needs to stay longer for further stabilization. PN: One of the peers, reported allegedly that patient was able to brought few Suboxone pills in the unit and she may have taken those pills last night. Medication Change: Yes Medical Record Reviewed: Yes Mental Status Examination - Cognitive Function Orientation: Person, Place, Situation, Time Memory: Intact Attention: WNL Concentration: Poor Association: WNL Fund of Knowledge: Poor - Mood Mood: Depressed, Anxious - Affect Affect: Constricted, Depressed - Formal Thought Process Formal Thought Process: No Impairment - Suicidal Ideation Suicidal Ideation: No - Homicidal Ideation Homicidal Ideation: No Goal/Treatment Plan - Goal/Treatment Plan Need for Continued Stay: Remain at risks for inpatient hospitalization, Severe depression anxiety Progress Toward Problem(s) and Goals/Treatment Plan: Bipolar disorder mixed moderate Opioid use disorder severe Opioid withdrawal Alcohol use disorder severe Alcohol withdrawal CBT Psychoeducation Supportive therapy and group therapy immunotherapy Methadone for opioid withdrawal Librium for alcohol withdrawal Neurontin for augmentation Remeron for depression Trazodone for sleep Hydroxyzine for anxiety Withdrawal medications for heroin including clonidine/Zofran/Imodium ec For alcohol folic acid/multivitamin/thiamine - Smoking Cessation Smoking Cessation Initiated: No
--- NOTE | 2018-10-03 23:48 | CP.PCM.PN ---
Subjective - Date & Time of Evaluation Date of Evaluation: 10/04/18 Time of Evaluation: 00:22 - Subjective Subjective: PGY1 progress note for Dr. Austin Vidal was called to come and evaluate the pt due to continued vomiting. Pt seen and examined at bedside. As per nurse, pt is continuing to vomit, unable to tolerate po. Pt reports that she is nauseated, and has cramps in the abdomen, diffusely. She is requesting ativan to help her sleep. Denies chest pain. ROS limited due to pt unwilling to answer questions. Objective - Vital Signs/Intake and Output Vital Signs (last 24 hours): Temp Pulse Resp BP Pulse Ox 98.8 F 66 20 140/80 98 10/03/18 06:00 10/03/18 16:09 10/03/18 06:00 10/03/18 16:09 10/03/18 06:00 - Medications Medications: Current Medications Al Hydrox/Mg Hydrox/Simethicone (Maalox 30 Ml) 30 ml PO TID PRN PRN Reason: Indigestion / Heartburn Albuterol (Ventolin Hfa 90 Mcg/Actuation (8 G)) 2 puff INH RQ4 PRN PRN Reason: Shortness of Breath Chlordiazepoxide (Librium) 25 mg PO Q8H [facility]; Taper Stop: 10/06/18 09:59 Last Admin: 10/03/18 17:29 Dose: Not Given Chlordiazepoxide (Librium) 25 mg PO Q4H PRN PRN Reason: Alcohol Withdrawal Stop: 10/06/18 08:55 Clonidine HCl (Catapres) 0.1 mg PO Q4 PRN PRN Reason: COWS Score More or Equal to 5 Folic Acid (Folic Acid) 1 mg PO DAILY [facility] Last Admin: 10/03/18 09:52 Dose: Not Given Gabapentin (Neurontin) 300 mg PO TID [facility] Last Admin: 10/03/18 17:29 Dose: Not Given Hydroxyzine HCl (Atarax) 25 mg PO Q4H PRN PRN Reason: Anxiety Last Admin: 10/02/18 19:40 Dose: 25 mg Lactated Ringer's (Lactated Ringer's) 1,000 mls @ 1,000 mls/hr IV .Q1H ONE Stop: 10/04/18 00:46 Influenza Virus Vaccine (Flucelvax Quad 5252-6679 Syr) 60 mcg IM .ONCE ONE Stop: 10/04/18 10:01 Insulin Aspart (Novolog) 0 unit SC [facility]; Protocol Last Admin: 10/03/18 21:31 Dose: Not Given Loperamide HCl (Imodium) 2 mg PO Q8 PRN PRN Reason: Diarrhea Methadone HCl (Methadone) 20 mg PO Q24H [facility]; Taper Stop: 10/07/18 08:44 Last Admin: 10/03/18 08:38 Dose: 20 mg Mirtazapine (Remeron) 15 mg PO HS [facility] Last Admin: 10/03/18 21:32 Dose: Not Given Multivitamins (Hexavitamin) 1 tab PO DAILY [facility] Last Admin: 10/03/18 09:52 Dose: Not Given Nicotine (Nicoderm Cq) 1 patch TD DAILY [facility] Last Admin: 10/03/18 10:55 Dose: Not Given Ondansetron HCl (Zofran Tab) 4 mg PO Q8 PRN PRN Reason: Nausea/Vomiting Ondansetron HCl (Zofran Inj) 4 mg IM Q6 PRN PRN Reason: Nausea/Vomiting Last Admin: 10/03/18 21:33 Dose: 4 mg Pneumococcal Polyvalent Vaccine (Pneumovax 23 Vaccine) 0.5 ml IM .ONCE ONE Stop: 10/04/18 10:31 Promethazine HCl/Dextromethorphan (Phenergan Dm Syrup) 5 ml PO Q6H PRN PRN Reason: Nausea/Vomiting Last Admin: 10/03/18 17:26 Dose: 5 ml Pseudoephedrine HCl (Sudafed Tab) 60 mg PO QID PRN PRN Reason: Nasal/Sinus Congestion Thiamine HCl (Vitamin B1 Tab) 100 mg PO DAILY [facility] Last Admin: 10/03/18 09:51 Dose: Not Given Trazodone HCl (Desyrel) 50 mg PO HS PRN PRN Reason: Insomnia Last Admin: 10/02/18 21:24 Dose: 50 mg - Labs Labs: 10/03/18 03:50 10/03/18 03:50 - Constitutional Appears: Unkempt - Head Exam Head Exam: ATRAUMATIC, NORMAL INSPECTION - Eye Exam Eye Exam: EOMI, Normal appearance - ENT Exam ENT Exam: Mucous Membranes Moist - Neck Exam Neck Exam: Full ROM - Respiratory Exam Respiratory Exam: Clear to Ausculation Bilateral - Cardiovascular Exam Cardiovascular Exam: REGULAR RHYTHM, +S1, +S2. absent: Murmur - GI/Abdominal Exam GI & Abdominal Exam: Soft, Tenderness (diffuse tenderness), Hyperactive Bowel Sounds - Extremities Exam Extremities Exam: Normal Capillary Refill. absent: Calf Tenderness, Pedal Edema - Neurological Exam Neurological Exam: Alert, Awake - Psychiatric Exam Psychiatric exam: Depressed - Skin Skin Exam: Dry, Normal Color, Warm Assessment and Plan - Assessment and Plan (Free Text) Assessment: 27F pmhx of DM admitted to Detox for Opiate withdrawals. Pt continues to have abdominal pain and severe vomiting, unable to tolerate po. Plan: Vomiting, with dehydration -likely 2/2 to opiate withdrawals -no hypotension -no tachycardia -no electrolyte abnormalities on yesterday's labs but repeats ordered today -BUN was elevated yesterday, signs of hemoconcentration -Zofran 4mg IM q4 -Phenergan 5 oral Marium'n Q6 -encourage slow oral fluids -follow up cbc, cmp, lactate, Magnesium phosphorous -will give IV bolus of LR x1L Acute Opiate Withdrawals -Methadone Taper as per psych -Ativan 2mg IM given stat -follow psych recs Hx of Alcohol dependence -monitor vitals -monitor for withdrawals -CIWA protocol -may potentially give Ativan 2mg IM if needed DM -Novolog Medium scale -Accucheks PPx: -PTX -no DVT ppx -Diabetic Diet Dispo: Transfer to telemetry for IVF as this cannot be done on 5e. Case discussed with RN at [facility] who reports pt is not on 1:1. No psychiatry note reports that pt has a need to be 1:1. Case discussed with Dr. Austin Brito PGY1
[2018-10-04 03:25] LABS: BASO # 0.1 K/uL (0.0-0.2); BASO % 0.4 % (0.0-2.0); EOS % 0.1 % (0.0-4.0); LYMPH # 1.8 K/uL (1.0-4.3); LYMPH % 14.9 % (20.0-40.0); MEAN CELL VOLUME 91.2 fL (81.0-99.0); MEAN CORPUSCULAR HEMOGLOBIN 30.4 pg (27.0-31.0); MEAN CORPUSCULAR HGB CONC 33.3 g/dL (33.0-37.0); MEAN PLATELET VOLUME 10.6 fL (7.2-11.7); MONO # 0.9 K/uL (0.0-0.8); MONO % 7.4 % (0.0-10.0); NEUT # 9.6 K/uL (1.8-7.0); NEUT % 77.2 % (50.0-75.0); RBC 4.6 Mil/uL (3.80-5.20); WHITE BLOOD COUNT 12.4 K/uL (4.8-10.8)
[2018-10-04 04:12] LABS: ALB/GLOB RATIO 1.5 (1.0-2.1); ALBUMIN 4.6 g/dL (3.5-5.0); ALT/SGPT 22 U/L (9-52); AST/SGOT 26 U/L (14-36); BLOOD UREA NITROGEN 24 mg/dL (7-17); CALCIUM 8.9 mg/dl (8.6-10.4); GFR NON-AFRICAN AMERICAN > 60
--- NOTE | 2018-10-04 07:38 | CP.PCM.PN ---
Subjective - Date & Time of Evaluation Date of Evaluation: 10/04/18 Time of Evaluation: 06:45 - Subjective Subjective: Patient examined at bedside this morning. Resident reports patient had unwitnessed episode of emesis and given antiemetic. Nursing reports pt is nauseous and reporting intense abdominal pain. Upon evaluation pt reports intense abdominal pain and requests ativan and then requests morphine. I explained to pt that she appeared anxious and agitated and that may contribute to her symptoms. Conversation held w/ pt regarding her opiate withdrawal, symptoms, history, and plan. Pt informed her lactate was elevated on labs, and repeat one to be drawn 6 hrs from prior. Informed by nursing pt was growing increasingly agitated, wandering halls and threatening to take from sharps container. Upon evaluation, pt informed second lactate reported at 3.4, and plan for CT abd/pelvis to evaluate for further pathology; pt agreed. While in discussion, security entered to question pt about reported sharps statement, wanting to confirm pt was not suicidal. Order for 1:1 placed and pt was not left unsupervised. Paged again regarding nursing finding sharps container tampered with, empty syringes/flushes and dilaudid vial in bed, as well as the room trash filled with syringes and drug waste products. Pt denies involvement or knowledge of incident. Appropriate hospital staff notified of events, and then came to assess. Patient then decided to sign out AMA and forgo further abdominal workup. Discussion had w/ pt regarding risks of leaving against medical advice. Vitals/BG stable at discharge. Evaluated by Dr. Warren and cleared of harm to self/others. Pt understood risks of leaving and assumed responsibility. Objective - Vital Signs/Intake and Output Vital Signs (last 24 hours): Temp Pulse Resp BP Pulse Ox 99.3 F 63 20 151/78 H 99 10/04/18 02:01 10/04/18 02:01 10/04/18 02:01 10/04/18 02:01 10/04/18 02:01 - Medications Medications: Current Medications Al Hydrox/Mg Hydrox/Simethicone (Maalox 30 Ml) 30 ml PO TID PRN PRN Reason: Indigestion / Heartburn Albuterol (Ventolin Hfa 90 Mcg/Actuation (8 G)) 2 puff INH RQ4 PRN PRN Reason: Shortness of Breath Chlordiazepoxide (Librium) 25 mg PO Q8H [facility]; Taper Stop: 10/06/18 09:59 Last Admin: 10/04/18 04:48 Dose: 25 mg Chlordiazepoxide (Librium) 25 mg PO Q4H PRN PRN Reason: Alcohol Withdrawal Stop: 10/06/18 08:55 Clonidine HCl (Catapres) 0.1 mg PO Q4 PRN PRN Reason: COWS Score More or Equal to 5 Diphenhydramine HCl (Benadryl) 25 mg IVP ONCE ONE Stop: 10/04/18 08:01 Folic Acid (Folic Acid) 1 mg PO DAILY [facility] Last Admin: 10/03/18 09:52 Dose: Not Given Gabapentin (Neurontin) 300 mg PO TID [facility] Last Admin: 10/03/18 17:29 Dose: Not Given Hydroxyzine HCl (Atarax) 25 mg PO Q4H PRN PRN Reason: Anxiety Last Admin: 10/04/18 05:14 Dose: 25 mg Influenza Virus Vaccine (Flucelvax Quad [id number] Syr) 60 mcg IM .ONCE ONE Stop: 10/04/18 10:01 Insulin Aspart (Novolog) 0 unit SC [facility]; Protocol Last Admin: 10/03/18 21:31 Dose: Not Given Loperamide HCl (Imodium) 2 mg PO Q8 PRN PRN Reason: Diarrhea Methadone HCl (Methadone) 20 mg PO Q24H [facility]; Taper Stop: 10/07/18 08:44 Last Admin: 10/03/18 08:38 Dose: 20 mg Mirtazapine (Remeron) 15 mg PO [facility] Last Admin: 10/03/18 21:32 Dose: Not Given Multivitamins (Hexavitamin) 1 tab PO DAILY [facility] Last Admin: 10/03/18 09:52 Dose: Not Given Nicotine (Nicoderm Cq) 1 patch TD DAILY [facility] Last Admin: 10/03/18 10:55 Dose: Not Given Ondansetron HCl (Zofran Tab) 4 mg PO Q8 PRN PRN Reason: Nausea/Vomiting Ondansetron HCl (Zofran Inj) 4 mg IM Q6 PRN PRN Reason: Nausea/Vomiting Last Admin: 10/04/18 06:21 Dose: 4 mg Pneumococcal Polyvalent Vaccine (Pneumovax 23 Vaccine) 0.5 ml IM .ONCE ONE Stop: 10/04/18 10:31 Promethazine HCl/Dextromethorphan (Phenergan Dm Syrup) 5 ml PO Q6H PRN PRN Reason: Nausea/Vomiting Last Admin: 10/03/18 17:26 Dose: 5 ml Pseudoephedrine HCl (Sudafed Tab) 60 mg PO QID PRN PRN Reason: Nasal/Sinus Congestion Thiamine HCl (Vitamin B1 Tab) 100 mg PO DAILY [facility] Last Admin: 10/03/18 09:51 Dose: Not Given Trazodone HCl (Desyrel) 50 mg PO HS PRN PRN Reason: Insomnia Last Admin: 10/02/18 21:24 Dose: 50 mg - Labs Labs: 10/04/18 03:21 10/04/18 03:52 - Constitutional Appears: Non-toxic, Agitated - Head Exam Head Exam: ATRAUMATIC, NORMAL INSPECTION, NORMOCEPHALIC - Eye Exam Eye Exam: EOMI, Normal appearance Pupil Exam: NORMAL ACCOMODATION - ENT Exam ENT Exam: Mucous Membranes Moist, Normal Exam - Neck Exam Neck Exam: Normal Inspection - Respiratory Exam Respiratory Exam: Clear to Ausculation Bilateral, NORMAL BREATHING PATTERN - Cardiovascular Exam Cardiovascular Exam: Tachycardia, REGULAR RHYTHM - GI/Abdominal Exam GI & Abdominal Exam: Soft, Tenderness, Normal Bowel Sounds. absent: Distended, Guarding, Rigid - Extremities Exam Extremities Exam: Normal Inspection. absent: Calf Tenderness, Pedal Edema - Back Exam Back Exam: NORMAL INSPECTION - Neurological Exam Neurological Exam: Alert, Awake, Normal Gait, Oriented x3 - Psychiatric Exam Psychiatric exam: Agitated, Anxious - Skin Skin Exam: Intact, Normal Color, Warm Assessment and Plan - Assessment and Plan (Free Text) Assessment: 27 year old female with pmhx of opiate abuse, DM admitted to medicine from psych for evaluation and treatment of intractable nausea/vomiting/abdominal pain while undergoing treatment to detox from opiates. Plan: Nausea/Vomiting/Abdominal Pain -elevated lactate -zofran IVP PRN -NS @125 -f/u blood/urine cx -CT abd/pelvis w/ IV/PO contrast DM -[place]cks -CCD -ISS Opiate Withdrawal -per psych PPX 1:1 supervision 2/2 agitation Discussed w/ Dr. Austin Basurto, PGY-1 Pt left AMA before completing abdominal workup
[2018-10-04] MEDS ORDERED: Sodium Chloride 0.9% 1,000 ML IV SCH (08:00)
[2018-10-04] MEDS ORDERED: DiphenhydrAMINE 50 mg/ml Inj IVP ONE ×2 (08:00)
[2018-10-04 08:19] VITALS: TEMP 98
[2018-10-04 08:31] LABS: VENOUS BLOOD GAS BASE EXCESS 6.4 mmol/L (0.0-2.0); VENOUS BLOOD GAS PCO2 41 mmHg (40-60); VENOUS BLOOD GAS PO2 33 mm/Hg (30-55); VENOUS BLOOD PH 7.48 (7.32-7.43)
[2018-10-04] MEDS ORDERED: Naloxone 0.4 mg/ml Inj (Adult) IVP PRN (09:58)
[2018-10-04] MEDS ORDERED: Multivitamin (MVI) 10 ML, Thiamine 100 MG, Folic Acid 1 MG in Sodium Chloride 0.9% 1,00... IV ONE (10:00)
[2018-10-04] MEDS ORDERED: Influenza Vaccine 60 mcg/0.5 mL SYR (4YR UP) IM ONE (10:00)
[2018-10-04] MEDS: (Novolog) Insulin Aspart, Recombinant 100 u/ml 10 ml vial SC SCH (10:14)
[2018-10-04 10:24] VITALS: BP 157/79; PULSE 111; O2SAT 98
[2018-10-04] MEDS ORDERED: Naloxone 0.4 mg/ml Inj (Adult) IVP ONE (10:30)
[2018-10-04] MEDS ORDERED: Pneumococcal 23-Valent Vaccine IM ONE (10:30)
--- NOTE | 2018-10-04 16:00 | PCM.PYCHPN ---
Psychiatric Progress Note - Psychiatric Progress Note Patient seen today, length of contact: 15 min Patient Chief Complaint: I want to go home' Problems Identified/Issues Discussed: Patient was seen and evaluated, chart reviewed and discussed the staff. Per staff, patient became worse last night, so she was transferred to the medical floor. However, in the morning pt pulled out the injection disposal basket and tried to inject morphine injection. When she get caught, she demanded to sign out AMA. She reports irritable mood but she denies any feelings of hopelessness and helplessness. She denies any auditory hallucinations or any paranoia She is taking medication denies any side effects. Medication Change: Yes Medical Record Reviewed: Yes Mental Status Examination - Cognitive Function Orientation: Person, Place, Situation, Time Memory: Intact Attention: WNL Concentration: WNL Association: WNL Fund of Knowledge: WNL - Mood Mood: Anxious - Affect Affect: Constricted - Formal Thought Process Formal Thought Process: No Impairment - Suicidal Ideation Suicidal Ideation: No - Homicidal Ideation Homicidal Ideation: No Goal/Treatment Plan - Goal/Treatment Plan Need for Continued Stay: Remain at risks for inpatient hospitalization, Severe depression anxiety Progress Toward Problem(s) and Goals/Treatment Plan: Bipolar disorder mixed moderate Opioid use disorder severe Opioid withdrawal Alcohol use disorder severe Alcohol withdrawal CBT Psychoeducation Supportive therapy and group therapy immunotherapy Methadone for opioid withdrawal Librium for alcohol withdrawal Neurontin for augmentation Remeron for depression Trazodone for sleep Hydroxyzine for anxiety Withdrawal medications for heroin including clonidine/Zofran/Imodium ec For alcohol folic acid/multivitamin/thiamine Pt can sign out AMA from the medical floor.
== END 2018-10-04 10:31 | disposition left against medical advice (07) | DRG 430 ==
LOC: C.ER 23:28 → EEVIPCON 10-02 03:44 → C.5E 10-02 03:44 → C.5S 10-04 01:33
PROVIDERS: ADMIT Surgery; ATTEND Surgery
DX: F31.62 Bipolar disorder, current episode mixed, moderate (principal); F11.23 Opioid dependence with withdrawal; F13.10 Sedative, hypnotic or anxiolytic abuse, uncomplicated; F43.10 Post-traumatic stress disorder, unspecified; Z59.0 Homelessness; Z79.4 Long term (current) use of insulin; F17.210 Nicotine dependence, cigarettes, uncomplicated; E10.9 Type 1 diabetes mellitus without complications